=== PATIENT | male | born 1950 | race Caucasian/White ===

== ENCOUNTER 2025-04-20 12:48 | Outpatient (CLI) | payer MEDICARE, SELFPAY ==
--- OUTSIDE RECORDS SUMMARY | 2025-04-07 04:00 | XMS_ITS | Continuity of Care Document ---
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 Phone Jung MAYER, [facility], [facility] Unavailable Unavailab le Allergies, Adverse Reactions, Alerts Substance Reaction Status Criticality No Known Allergies Active No Inform ation Medications Medication Instructions Dosage Effective Dates (start - stop) Status Comments Accu-Chek Guide test strips USE TO TEST BLOOD GLUCOSE ONCE DAILY - Active Accu-Chek Softclix Lancets USE TO TEST BLOOD GLUCOSE ONCE DAILY - Active metformin 500 mg tablet - Active atorvastatin 40 mg tablet - Active Accu-Chek Guide Me Glucose Meter USE TO TEST SUGARS ONCE DAILY - Active Eliquis 5 mg tablet - Active Procedures Procedure Date Complex e/m visit add on OFFICE/OUTPATIENT VISIT, EST Advance Directives Directive Yes / No Effective Date File Name Other Directive No N/A N/A WARNING:The information contained in this section is historical and is provided for information only and does not constitute a legal document or any assurance that the information is still accurate. Please verify the information with the elizondo of the legal document before using it for clinical purposes. Encounters Encounter Description Practice Location Reason(s) For Visit Diagnoses Date Provider Providers Copied on Encounter OFFICE/OUTPAT IENT VISIT, EST [facility], [address] [place] [address], [id number], [place] tel:[phone] [facility] [place] FOLLOW UP (chief complaint) Hyperlipidemia, unspecifiedPEType 2 diabetes mellitus without complications Jung Timur. [address], [place], [place], [id number] , [place]. tel: [phone] Referring Provider: Kaitlynn landers, [address] [facility] [address], [place], [address]. tel:[phone] [facility], [address] [place] [address], [id number], tel:[phone] [facility] No Information 5 Jung Timur. [address], [place], [place], [id number] , . tel: [phone] [facility], [address] [place] [address], [id number], tel:[phone] [facility] Chest pain, unspecifiedHyperli pidemia, unspecified Jung Timur. [address], [place], [place], [id number] , . tel: [phone] Family History Family Member Type Diagnosis Age At Onset No Information Payers Payer name Insurance type Covered green party ID Authortaisha hernandez(s) MEDICARE [place] [id number] [place] MEDICARE SUPP CI [id number] Social History Type Description Quantity Date Captured Comments Alcohol Use Details No Caffeine Use Details No Tobacco Use Status No Information Smoking Status Former smoker Non-Smoking Tobacco Use Details : No Details Available : No Details Available Sex Male Vital Signs Date / Time: Height Weight BMI Pulse Rate Blood Pressure Temperature Respiratory Rate Body Surface Area Head Circumference Head Circ. Percentile Wt./Ary. Percentile BMI percentile Pulse Ox Inhaled Ox 9:17 AM 66.00 in 72.575 kg (160.00 lbs) 25.8 2 kg/m eter (2) 77 /min 127/80 mm[Hg] 16 /min 1.84 meter(2) 99 % 21 % Chief Complaint And Reason For Visit From encounter dated '04/07/2025 09:00'. FOLLOW UP (chief complaint) Reason For Referral Reason For Referral No Information Plan Of Treatment Date Type Action Status Goal Dietary management education , guidance, and counseling deleted History Of Present Illness Encounter Date Complaint History Of Prese nt Illness FOLLOW UP Functional Status Date Functional Assessmen t No Information Instructions Date Instruction Additional Infor mation No Information Assessments Type Assessment Date assessment Hyperlipidemia, unspecified assessment PE assessment Type 2 diabetes mellitus without complications Patient Care Teams Name Effective Dates (start - stop) Status Members No Information
--- NOTE | ~2025-04-20 | US_ITS ---
EXAMINATION: US venous doppler [facility] DATE: 04/20/2025 13:43 INDICATION: Recent pulmonary embolism, currently anticoagulated. TECHNIQUE: Grayscale ultrasound images without and with compression and Doppler ultrasound images of the bilateral lower extremity veins were obtained. COMPARISON: None. FINDINGS: Noncompressible deep venous thrombosis in the left profunda (deep) femoral vein, femoral vein, popliteal vein and gastrocnemius vein. The left common femoral vein, posterior tibial veins, peroneal veins and greater saphenous vein outflow are patent. Similar pattern of noncompressible deep venous thrombosis in the right profunda (deep) femoral vein, femoral vein, popliteal vein and gastrocnemius vein. The right common femoral vein, posterior tibial veins, peroneal veins and greater saphenous vein outflow are patent. IMPRESSION: 1. Extensive bilateral [id number] deep venous thrombosis in both lower limbs. Dr. Fairchild discussed these findings with Dr. Graham and at 1:50 PM. Reviewed, dictated and finalized at location A. IMPRESSION: 1. Extensive bilateral [id number] deep venous thrombosis in both lower hays bs. Dr. Fairchild discussed these findings with Dr. Graham and at 1:50 PM.
--- OUTSIDE RECORDS SUMMARY | 2025-04-20 12:56 | XMS_ITS | Clinical Summary ---
Author Organization [facility] Genaro sinclair Daniel Address [address] [place] [address] Care Team Providers Care Lead Assistant Manager Name Role Phone Unavailable Primary Care Provider Unavailabl e Allergies No known active allergies Medications Eliquis 5 mg tablet Take 5 mg by mouth 2 times daily. Active atorvastatin (LIPITOR) 40 mg tablet Take 40 mg by mouth daily. Active metFORMIN (GLUCOPHAGE) 500 mg tablet Take 500 mg by mouth 2 times daily. Active Active Problems Problem Noted Date Diagnosed Date Acute saddle pulmonary embolism without acute co r pulmonale 03/15/2025 Acute deep vein thrombosis ( DVT) of proximal vein of both lower extremities 03/15/2025 Encounters Date Type Department Care Team Description 04/13/2025 4:30 PM CDT Telephone Check Up [facility] [address] [place] [phone] Rickey Nuno MD Acute deep vein thrombosis (DVT) of proximal vein of both lower extremities (CMS/HCC) (Primary Dx) 03/21/2025 External Device Data STL ABSTRACTION Provider, Abstract 03/21/2025 External Device Data STL ABSTRACTION Provider, Abstract 03/21/2025 External Device Data STL ABSTRACTION Provider, Abstract 03/15/2025 2:30 PM CDT Office Visit [facility] and Hematology [facility] [address] [place] [phone] Deneen Obrien MD Acute saddle pulmonary embolism without acute cor pulmonale (CMS/HCC) (Primary Dx); Acute deep vein thrombosis (DVT) of proximal vein of both lower extremities (CMS/HCC) from Last 3 Months Family History Medical History Relation Name Comments No Known Problems Child 1 No Known Problems Child 2 No Known Problems Child 3 Relation Name Status Comments Brother Child 1 Alive Child 2 Alive Child 3 Alive Father Mother Sister 1 Alive Sister 2 Social History Tobacco Use Types Packs/Day Years Used Date Smoking Tobacco: Former Cigarettes 2 27 0 07/20/1970 - 07/20/1997 Smokeless Tobacco: Never Tobacco Cessation:Counseling Given: Not Answered Alcohol Use Standard Drinks/Week Comments Yes 0 (1 standard drink = 0.6 oz pur e alcohol) Occasionally Sex and Gender Information Value Date Recorded Sex Assigned at Not on file Legal Sex Male 3:04 PM CDT Gender Identity Not on file Sexual Orientation Not on file Last Filed Vital Signs Vital Sign Reading Time Taken Comments Blood Pressure 147/85 03/15/2025 2:09 PM CDT Pulse 81 03/15/2025 2:07 PM CDT Temperature 37.1 C (98.8 F) 03/15/2025 2:07 PM CDT Respiratory Rate 15 03/15/2025 2:07 PM CDT Oxygen Saturation 95% 03/15/2025 2:07 PM CDT Inhaled Oxygen Concentration - - Weight 76 kg (167 lb 9.6 oz) 03/15/2025 2:07 PM CDT Height - - Body Mass Index - - Plan of Treatment Upcoming Encounters Date Type Department Care Team (Late st Contact Info) Description 04/25/2025 4:30 PM CDT Telephone Check Up [facility] and H[facility]ology - [place] [address] [facility] [address] [place] [phone] Rickey Nuno MD [address] [facility] [address] [place] [address] Health Maintenance Due Date Last Done Comments DIABETES ANNUAL FOOT EXAM 1968 DIABETES ANNUAL RETINAL EXAM 1968 DIABETES HBA1C Q 6 MONTHS 1968 DIABETES MICROALBUMIN ANNUAL SCREEN 1968 LDL CHOLESTEROL ANNUAL 1968 Traditional Medicare (ACO) A nnual Wellness Visit 1969 COLORECTAL SCREENING 1995 Colorectal Cancer Screening 1995 FIT-DNA Q 3 years 1995 FIT/FOBT Q 1 year 1995 Flex Sig/CT Colonography Q 5 years 1995 Abdominal Aortic Aneurysm (A AA) Screening 2015 INFLUENZA VACCINE (#1) 2025 , 04/15/2023, 04/15/2022, Additional history exists RSV VACCINE (60+ or ) (1 - 1-dose 75+ series) 2025 DTAP/TDAP/TD VACCINES (2 - T d or Tdap) 10/28/2026 10/28/2016 PNEUMOCOCCAL VACCINE 50+ YEARS Completed 04/16/2020 , 04/14/2019 ZOSTER VACCINE Completed 11/09/2023, 06/02/2023 COVID-19 Vaccine Completed 01/26/2025, , 04/15/2023, Additional history exists [place] [address] [place] [address] MEDICARE PART A AND B
--- OUTSIDE RECORDS SUMMARY | 2025-04-20 12:56 | XMS_ITS | Clinical Summary ---
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 Role Phone Unavailable Primary Care Provider Unavailabl e Social History Tobacco Use Types Packs/Day Years Used Date Smoking Tobacco: Never Assessed Sex and Gender Information Value Date Recorded Sex Assigned at Not on file Legal Sex Male 7:11 PM CDT Gender Identity Not on file Sexual Orientation Not on file Plan of Treatment Health Maintenance Due Date Last Done Comments Colorectal Cancer Screening Colonoscopy (10 Years) 1950 Hepatitis C 1968 DTaP, Tdap and Td Vaccines ( 1 - Tdap) 1969 Pneumococcal Vaccine: 50+ Ye ars (1 of 1 - PCV) 2000 Zoster Vaccines (1 of 2) 2000 COVID-19 Vaccine (1 - 2023-2 5 season) 2025 RSV Immunization or 60+ Years (1 - 1-dose 75+ series) 2025 Meningococcal B Vaccine Aged Out No l onger eligible based on patient's age to complete this topic Meningococcal Vaccine Aged Out No jalen joaquin eligible based on patient's age to complete this topic RSV Immunizations Under 20 Months Aged Out No longer eligible based on patient's age to complete this topic
== END 2025-04-20 12:49 | disposition home or self-care (01) ==
PROVIDERS: PCP Internal Medicine; Visit Provider Internal Medicine Hematology & Oncology
DX: I82.4Y3 Acute embolism and thrombosis of unspecified deep veins of proximal lower extremity, bilateral (principal)
CPT/HCPCS: 93970

== ENCOUNTER 2025-04-27 08:31 | Outpatient (CLI) | payer MEDICARE, SELFPAY ==
--- NOTE | ~2025-04-27 | CT_ITS ---
EXAMINATION: CT abdomen pelvis w con DATE: 04/27/2025 08:55 INDICATION: Abdominal pain. TECHNIQUE: Computed tomography (CT) of the abdomen and pelvis was performed with 100 mL Omnipaque 350 intravenous contrast. Automated exposure control and iterative reconstruction technique were employed. The dose-length product was 383.51 mGy-cm. COMPARISON: None. FINDINGS: The visualized portions of lung bases demonstrate mild atelectasis. Calcified left lung nodules and calcified left hilar and mediastinal lymph nodes are consistent with old granulomatous disease. No pleural effusion. The heart size is normal. No pericardial effusion. There are coronary artery calcifications. There are cysts in the liver measuring up to 7 mm. There are gallstones in the gallbladder, which is normal in size. Calcifications in the spleen are consistent with old granulomatous disease. The pancreas, adrenal glands, and kidneys are normal. The prostate is moderately enlarged. There are no dilated loops of bowel. The appendix is normal. There are no pathologically enlarged lymph nodes. There is no free intraperitoneal fluid. There is mild thoracic and lumbar spondylosis. IMPRESSION: 1. No etiology for the patient's symptoms. Reviewed, dictated and finalized at location E.
[2025-04-27 08:51] LABS: Estimated Glomerular Filt Rate > 60
== END 2025-04-27 08:32 | disposition home or self-care (01) ==
PROVIDERS: PCP Internal Medicine; Visit Provider Internal Medicine Hematology & Oncology
DX: R10.9 Unspecified abdominal pain (principal)
CPT/HCPCS: 74177; Q9967

== ENCOUNTER 2025-07-17 09:28 | Outpatient (CLI) | payer MEDICARE, SELFPAY ==
--- NOTE | ~2025-07-17 | US_ITS ---
EXAMINATION:US venous doppler LE BI INDICATION:Deep venous thrombosis. Patient on blood thinners. TECHNIQUE: Multiple grayscale, color flow and Doppler images of the right and left lower extremity deep venous systems were obtained and reviewed. 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 There is thrombosis of the right gastrocnemius vein. IMPRESSION: 1: Extensive bilateral deep venous thrombosis of the lower extremities.. Reviewed, dictated and finalized at location O. 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
--- OUTSIDE RECORDS SUMMARY | 2025-07-17 09:48 | XMS_ITS | Clinical Summary ---
Author Organization [facility] Address [address] [place] [address] Care Team Providers Care Case Liner Name Role Phone Unavailable Primary Care Provider [...] of 2) 2000 COVID-19 Vaccine (1 - 2024-2 6 season) 2025 RSV Immunization or 60+ Years (1 - 1-dose 75+ series) 2025 Influenza Adult (#1) 2025 Hepatitis A Vaccines Aged Out No long er eligible based on patient's age to complete this topic Meningococcal B Vaccine Aged Out No l onger eligible based on patient's age to complete this topic Meningococcal Vaccine Aged Out No jalen joaquin eligible based on patient's age to complete this topic RSV Immunizations Under 20 Months Aged Out No longer eligible based on patient's age to complete this topic
--- OUTSIDE RECORDS SUMMARY | 2025-07-17 09:48 | XMS_ITS | Data Portability ---
Author Organization [place] [facility], Main Office Address [address] [place] [address] Care Team Providers Care Consumer Loan Manager Name Role Phone MED AMBROSE Primary Care Provider MED AMBROSE Referring Provider [phone] Assessment Encounter Date Assessment Date Assessment LastModified by Organization Details LastModified Time 05/12/2023 05/12/2023 This note is dictated and transcribed by [employer]. Manager Social Services variances may occur. Despite proofreading, typographical errors may occur. Not available 05/12/2023 10:13:42 05/19/2023 05/19/2023 This note is dictated and transcribed by [employer]. Manager Social Services variances may occur. Despite proofreading, typographical errors may occur. Not available 05/19/2023 10:00:12 01/09/2025 01/09/2025 12/18/2024 [facility] labs A1C 8.4 12/21/2024: Gluc 173 Not available 01/09/2025 15:06:49 04/10/2025 04/10/2025 12/18/2024 [facility] labs A1C 8.4 12/21/2024: Gluc 173 03/16/2025: A1C 5.3 PSA 3.52 Not available 04/10/2025 14:58:44 Plan of Treatment Reminders Order Date Submit Date Provider Last Modified By Organization Details Last Modified Time Details Appointments Follow Up 15 2025 10:00A M Kaitlynn falcon MD Not available Not available Not available Lab glycohemo globin, total, blood 2024 025 [facility] (Lab), [address] [place], [address], 04/13/2025 12:31:06 microalbu min, urine 2024 025 [facility] (Lab), [address] [place], [address], 04/13/2025 12:31:06 lipid panel, serum 2024 025 [facility] (Lab), [address] [place], [address], 04/13/2025 12:31:06 CBC w/ auto diff 2024 025 [facility] (Lab), [address] [place], [address], 04/13/2025 12:31:06 TSH, serum or plasma 2024 025 [facility] (Lab), [address] [place], [address], 04/13/2025 12:31:06 CMP, serum or plasma 2024 025 [facility] (Lab), [address] [place], [address], 04/13/2025 12:31:06 PSA, total, serum or plasma 2024 025 [facility] (Lab), [address] [place], [address], 03/16/2025 13:54:13 glycohemo globin, total, blood 2024 025 [facility] (Lab), [address] [place], [address], 03/16/2025 14:18:36 microalbu min, urine 2024 025 [facility] (Lab), [address] [place], [address], 03/16/2025 13:51:36 lipid panel, serum 2024 025 [facility] (Lab), [address] [place], [address], 03/16/2025 13:53:03 CBC w/ auto diff 2024 025 [facility] (Lab), [address] [place], [address], 03/16/2025 13:13:49 TSH, serum or plasma 2024 025 [facility] (Lab), [address] [place], [address], 03/16/2025 13:54:08 CMP, serum or plasma 2024 025 [facility] (Lab), [address] [place], [address], 03/16/2025 13:53:13 Referral urologist referral - Please call patient to schedule an appointme nt. Thank you. 2024 025 [email or web address] Jeyson Bills MD, [address] [facility] [address], [place], [address], 07/10/2025 11:34:03 podiatris t referral - Please call patient to schedule an appointme nt. Thank you. 2024 025 [email or web address] Mayo Thompson DPM, [address] [facility], [address], [place], [address], 07/10/2025 11:37:06 cardiolog ist referral - Please call patient to schedule an appointme nt. Thank you. 2024 025 [email or web address] [place], [address] [address] , [address], [place], [address], 07/10/2025 11:35:14 podiatris t referral - Please call patient to schedule an appointme nt. Thank you. 2024 025 [email or web address] Mayo Thompson DPM, [address] [facility], [address], [place], [address], 07/10/2025 11:37:29 cardiolog ist referral - Please call patient to schedule an appointme nt. Thank you. 2024 025 [email or web address] [place], [address] [address], [place], [address], 04/17/2025 11:05:35 hematolog ist referral - Please call patient to schedule an appointme nt. Thank you. 2024 025 [email or web address] Rickey Nuno MD, [address], [place], [address], 04/17/2025 11:05:01 Procedures colonosco py screening (PROC) - Please call patient to schedule an appointme nt. Thank you. 2024 025 [email or web address] Jose Angel Carlos MD, [address] [facility], [facility] [address], [place], [address], 07/10/2025 11:33:08 colonosco py screening (PROC) - Please call patient to schedule an appointme nt. Thank you. 2024 025 [email or web address] Jose Angel Carlos MD, [address] [facility], [facility] [address], [place], [address], 04/17/2025 11:15:34 Surgeries None recorded. Imaging None recorded. Medication Orders atorvasta tin 40 mg tablet 2024 025 [facility] [address] [place], [address], 01/09/2025 15:48:54 Patient TargetsNo targets recorded. Patient Instructions Encounter Date Encounter Id Patient Instructions Last Modified By Organization Details Last Modified Time 05/12/2023 [id number] paronychia: care instructions Not available 05/12/2023 10:14:05 05/19/2023 [id number] paronychia: care instructions Not available 05/19/2023 10:00:50 01/09/2025 [id number] diabetic eye exam* llalor Not available 07/10/2025 10:20:00 Reason for Referral [employer] Referral for Type 2 diabetes mellitus Please call patient to schedule an appointment. Thank you. Referring Physician: Kaitlynn Valle Internal Medicine, Encounter Date: 01/09/2025 Please call patient to sched ule an appointment. Thank you. Referring Physician: Kaitlynn Valle Internal Medicine, Encounter Date: 01/09/2025 Jacquard Lace Weaver Referral for Sc reening for cardiovascular system disease Please call patient to schedule an appointment. Thank you. Referring Physician: Kaitlynn Valle Internal Medicine, Encounter Date: 01/09/2025 [employer] Referral for Type 2 diabetes mellitus Please call patient to schedule an appointment. Thank you. Referring Physician: Sade Brandt Medicine, Encounter Date: 04/10/2025 Jacquard Lace Weaver Referral for Sc reening for cardiovascular system disease Please call patient to schedule an appointment. Thank you. Referring Physician: Kaitlynn Valle Internal Medicine, Encounter Date: 04/10/2025 Urologist Referral for Prost ate specific antigen above reference range Please call patient to schedule an appointment. Thank you. Referring Physician: Sade Brandt Medicine, Encounter Date: 04/10/2025 Results Created Date Observation Date Name Description Value Unit Range Abnormal Flag Note LastModifiedBy Organization Detail LastModifiedTime 12/31/19 25 12/30/2024 imagi ng/di agnos tic resul t No observ ation record ed. [facility] [address], [place], [address], 12/30/2024 18:07:21 04/20/20 25 04/20/2025 imagi ng/di agnos tic resul t No observ ation record ed. [address], [place], [address], 04/20/2025 15:05:27 04/27/20 25 04/27/2025 imagi ng/di agnos tic resul t No observ ation record ed. [address], [place], [address], 04/27/2025 10:54:47 04/27/20 25 04/27/2025 imagi ng/di agnos tic resul t No observ ation record ed. [address], [place], [address], 04/27/2025 14:37:30 Result Notes None recorded. 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 Not Available [facility] 3 12:52:24 Sprain of elbow and forearm 221389519 Active Not Available [facility] 3 12:52:25 Knee pain Active Not Available [facility] 3 12:52:25 Closed posterior dislocatio n of elbow 2123548 Active Not Available [facility] 3 12:52:25 Pain of elbow region 55861795 Active Not Available [facility] 3 12:52:25 Onychomyco sis of toenails 717644176 Active 2022 Mayo Thompson DPM [address] [facility], [address], [place], [address] , [facility] 3 15:47:59 Ingrowing nail 231199893 Active 2022 Mayo Thompson DPM [address], [address], [place], [address] , [facility] 3 15:48:06 Cellulitis of toe of right foot 4909304159161 9106 Active 2022 Mayo Thompson DPM [address], [address], [place], [address] , [facility] 3 09:59:39 Hyperlipid emia 15914655 Active 2024 Kaitlynn landers MD [address], [address], [place], [address] , [facility] 5 15:00:01 Type 2 diabetes mellitus 47018534 Active 2024 Kaitlynn landers MD [address], [address], [place], [address] , [facility] 5 15:00:07 Septic pulmonary embolism 529754368 Active 2024 Kaitlynn landers MD [address], [address], [place], [address] , [facility] 5 15:05:40 Acute pulmonary embolism 405460624 Active 2024 Kaitlynn landers MD [address], [address], [place], [address] , [facility] 5 15:22:28 Pulmonary embolism 34135448 Active 2024 NOLBERTO Bunch, [place] - [facility] 5 10:55:28 Prostate specific antigen above reference range 092483880 Active 2024 Kaitlynn landers MD [address], [address], [place], [address] , [place] [facility] 5 22:14:30 Problem Notes None recorded. Procedures Surgical History Date Name Laterality Status Provider Name and Address Organization Details Recorded Time 3 Total Nail Avulsion with Chemical Matrixectomy-Ri ght completed Mayo Thompson DPM [address], [address], [place], [address], [employer] 04/28/2023 08:58:01 3 Total Nail Avulsion with Chemical Matrixectomy-Ri ght completed Mayo Thompson DPM [address], [address], [place], [address], [employer] 04/14/2023 09:57:38 3 Nail Debridement completed Mayo Thompson DPM [address], [address], [place], [address], [employer] [facility] 12/30/2022 10:58:13 3 Nail Debridement completed Mayo Thompson DPM [address], [address], [place], [address], [employer] 10/16/2022 13:49:33 Dental completed Sheri Nunez [employer] [facility] 09/30/2022 15:47:28 Knee Replacement completed Sheri Nunez [employer] [facility] 09/30/2022 15:47:35 repair of meniscus completed Sheri Nunez [employer] [facility] 09/30/2022 15:47:43 Imaging Results None recorded. Procedure Notes None recorded. Medical Equipment None Reported. Allergies No known drug allergies Medications Name Sig Start Date Stop Date Status Note LastModified by Organization Details LastModified Time amoxicillin 500 mg capsule TAKE 1 CAPSULE BY MOUTH EVERY 8 HOURS 09/30 completed Not Available Not Available Not Available atorvastati n 40 mg tablet Take 1 tablet by mouth once daily 2024 active Not Available Not Available Not Avai lable metformin 500 mg tablet Take 1 tablet twice a day by oral route for 90 days. 2024 active Not Available Not Available Not Avai lable Accu-Chek Softclix Lancets USE TO TEST BLOOD GLUCOSE ONCE DAILY active Not Available Not Available No t Available cephalexin 500 mg capsule TAKE 1 CAPSULE BY MOUTH EVERY 6 HOURS DIRECTED FOR 7 DAYS 01/09 completed Not Available Not Available Not Available oxycodone-a cetaminophe n 7.5 mg-325 mg tablet TAKE 1 TABLET BY MOUTH EVERY 6 HOURS NEEDED FOR PAIN 09/30 completed Not Available Not Available Not Available ketoconazol e 2 % topical cream APPLY 1 APPLICATI ON ONTO THE AFFFECTED TOENAILS ONCE DAILY 01/09 completed Not Available Not Available Not Available naproxen 500 mg tablet TAKE 1 TABLET BY MOUTH EVERY 12 HOURS NEEDED 09/30 completed Not Available Not Available Not Available amoxicillin 875 mg-potassiu m clavulanate 125 mg tablet TAKE 1 TABLET BY MOUTH TWICE DAILY 09/30 completed Not Available Not Available Not Available chlorhexidi ne gluconate 0.12 % mouthwash SWISH AND SPIT 15ML BY MOUTH THREE TIMES DAILY UNTIL GONE 09/30 completed Not Available Not Available Not Available Eliquis 5 mg tablet TAKE 1 TABLET BY MOUTH TWICE DAILY active Not Available Not Available No t Available Accu-Chek Guide test strips USE TO TEST BLOOD GLUCOSE ONCE DAILY active Not Available Not Available No t Available Accu-Chek Guide Me Glucose Meter USE TO TEST SUGARS ONCE DAILY active Not Available Not Available No t Available Vitals Date Recorded Body weight Body mass index (BMI) Body height Body temperature Heart rate Systolic And Diastolic Provider Name and Address Organization Details Last Updated DateTime 5 16345.8 1 g 29.4 kg/m2 167.64 cm 98.4 [degF] 84 /min 142/80 mm[Hg] NOLBERTO Bunch [facility] [employer] [facility] 5 15:16:24 Date Recorded Body height Body mass index (BMI) Body weight Body temperature Pain severity - 0-10 verbal numeric rating [Score] - Reported Heart rate Oxygen saturation Systolic And Diastolic Provider Name and Address Organization Details Last Updated DateTime 5 167.64 cm 26.3 kg/m2 19448.5 6 g 98.4 [degF] 0 76 /min 98 % 120/66 mm[Hg] Keli Osei MA [facility] [employer] [facility] 5 14:53:01 Date Recorded Body height Body mass index (BMI) Body weight Heart rate Respiratory rate Oxygen saturation Systolic And Diastolic Provider Name and Address Organization Details Last Updated DateTime 3 167.64 cm 32 kg/m2 13873.2 9 g 94 /min 14 /min 98 % 146/90 mm[Hg] Sheri Nunez [employer] 3 09:58:43 Date Recorded Body height Body mass index (BMI) Body weight Heart rate Respiratory rate Oxygen saturation Systolic And Diastolic Provider Name and Address Organization Details Last Updated DateTime 3 167.64 cm 32 kg/m2 44937.2 9 g 95 /min 14 /min 98 % 132/76 mm[Hg] Sheri Enrique [employer] 3 08:52:24 Social History Question Answer Notes LastModified by Organizat ion Details LastModified Time Tobacco Smoking Status Former Smoker quit 1997 NOLBERTO Bunch, [employer] [facility] 01/09/2025 15:09:09 Do You Have An Advance Directive? No Information not available 01/09/2025 Are You Blind Or Do You Have Difficulty Seeing? No Information not available 01/09/2025 What Is Your Level Of Caffeine Consumption? Occasional Information not available 09/30/2022 Are You Deaf Or Do You Have Serious Difficulty Hearing? No Information not available 01/09/2025 What Type Of Diet Are You Following? DIABETIC Information not available 01/09/2025 What Is The Highest Grade Or Level Of School You Have Completed Or The Highest Degree You Have Received? [id number] Information not available 01/09/2025 Have There Been Any Changes To Your Family Or Social Situation? No Information not available 04/10/2025 What Is The Fluoride Status Of Your Home? Fluoridated Information not available 01/09/2025 Are There Any Guns Present In Your Home? No Information not available 01/09/2025 Where Do You Live? SingleLevelHouse Information not available 01/09/2025 Do You Have A Medical Power Of Batter Mixer? No Information not available 01/09/2025 What Was The Date Of Your Most Recent Tobacco Screening? 04/10/2025 Information not available 04/10/2025 Have You Ever Been Counseled For Unhealthy Alcohol Use? No Information not available 09/30/2022 Do You Have Any Pets? No Information not available 01/09/2025 What Is Your Relationship Status? Information not available 01/09/2025 Do You Use Your Seat Belt Or Car Seat Routinely? Yes Information not available 01/09/2025 Do You Have Smoke And Carbon Monoxide Detectors In Your Home? Yes Information not available 01/09/2025 At What Age Did You Start Smoking Tobacco? 21 Information not available 01/09/2025 Are You Passively Exposed To Smoke? No Information not available 01/09/2025 Are There Any Smokers In Your House? No Information not available 01/09/2025 How Much Tobacco Do You Smoke? No 2ppd Information not available 01/09/2025 Has Tobacco Cessation Counseling Been Provided? No Information not available 09/30/2022 Have You Recently Traveled Abroad? No Information not available 01/09/2025 Do You Have Difficulty Walking Or Climbing Stairs? No Information not available 01/09/2025 Sex: Male Functional Status Question Answer Note LastModified by Organizat ion Details LastModified Time Do you use any illicit or recreational drugs? No Information not available 09/30/2022 Do you or have you ever used any other forms of tobacco or nicotine? No Information not available 09/30/2022 What is your level of alcohol consumption? Occasional Information not available 09/30/2022 Are you currently employed? No retired Information not available 01/09/2025 Are you able to walk independently without assistance or assistive devices? YESWOREST Information not available 01/09/2025 Do you have difficulty doing errands alone? No Information not available 01/09/2025 Are you able to care for yourself independently? Yes Information not available 01/09/2025 Do you have difficulty dressing, bathing, grooming, or toileting? No Information not available 01/09/2025 What is your exercise level? Heavy Information not available 01/09/2025 Mental Status Question Answer Note LastModified by Organizat ion Details LastModified Time Do you feel stressed (tense, restless, nervous, or anxious, or unable to sleep at night)? [id number] [facility] Information not available 01/09/2025 Do you have difficulty concentrating, remembering or making decisions? No Information no t available 01/09/2025 Family History Nothing Reported. Medical History Condition Response BACK INJECTIONS N ALLERGIES/HAYFEVER N LUNG DISEASE/DISORDER N ESRD N HISTORY OF DRUG ABUSE N INSOMNIA N RADIATION / CHEMOTHERAPY N COPD N HIGH CHOLESTEROL / HYPERLIPIDEMIA N RHEUMATOID ARTHRITIS N PVD N EDEMA N CAROTID BLOCKAGE N SHINGLES N BACK / NECK PROBLEMS N BOWEL PROBLEMS N DEPRESSION (INCLUDING POST ) N HAVE YOU BEEN HOSPITALIZED OR SEEN IN [facility] ER IN THE PAST YEAR ? N FAILED BACK SYNDROME N STROKE/TIA N LYMPHEDEMA N THYROID DISEASE N TB SKIN TEST N POLYCYSTIC OVARIES N OBESITY N HISTORY WITH COMPLICATIONS WITH ANESTHES IA ? N ANEURYSM N FIBROMYALGIA N OSTEOPOROSIS N URINARY/BLADDER/KIDNEY PROBLEMS N CORONARY ARTERY DISEASE (CAD) N Do you have Advance directive? N ARTHRITIS N Do you have a healthcare POA? N RESPIRATORY PROBLEMS N USE OF BLOOD THINNERS N NO SIGNIFICANT PAST MEDICAL HISTORY N DIABETES, TYPE N VON WILLIBRAND'S DISEASE N PERIPHERAL VASCULAR DISEASE N HEARTBURN / REFLUX N PERIPHERAL ARTERY DISEASE N AFIB N Do you have a living will? N BLOOD CLOTS N POST LAMINECTOMY SYNDROME N HEPATITIS / LIVER DISEASE N PULMONARY DISEASE N USE OF NSAIDS N GOUT N ALZHEIMER'S DISEASE N PAIN N ARTERIAL INSUFFICIENCY N HEADACHES/MIGRAINES N SEIZURES/EPILEPSY N CHF N VASCULAR DISEASE N Blood Disorder N DIZZINESS N HEART DISEASE/HEART PROBLEMS N NEUROPATHY N AIDS/HIV N KIDNEY DISEASE N LIVER DISEASE N MENTAL DISORDER/ILLNESS N NEUROPSYCHOLOGICAL N HYPERTENSION N CARDIAC ARRHYTHMIA N CANCER: SPECIFY N TOURETTE'S N ANXIETY DISORDER N ANESTHESIA COMPLICATIONS N ANEMIA/BLOOD DISORDER N BIPOLAR DISORDER N AUTOIMMUNE DISEASE N OSTEOARTHRITIS N TUBERCULOSIS N FOOT PROBLEM N Immunizations Vaccine Type Date Status Note Provider Nam e and Address Organization Details Recorded Time Tdap 7 completed Not Available [employer] 04/10/2025 14:45:26 Pneumococcal conjugate PCV 13 9 completed Not Available [facility] 04/10/2025 14:45:26 Influenza, high-dose, trivalent, PF 9 completed Not Available [facility] 04/10/2025 14:45:26 Influenza, high-dose, quadrivalent, PF 0 completed Not Available [facility] 04/10/2025 14:45:26 pneumococcal polysaccharide PPV23 0 completed Not Available [facility] 04/10/2025 14:45:26 COVID-19, mRNA, LNP-S, PF, 30 mcg/0.3 mL dose 1 completed Not Available [facility] 04/10/2025 14:45:26 COVID-19, mRNA, LNP-S, PF, 30 mcg/0.3 mL dose 1 completed Not Available [facility] 04/10/2025 14:45:26 Influenza, high-dose, quadrivalent, PF 1 completed Not Available [facility] 04/10/2025 14:45:26 COVID-19, mRNA, LNP-S, PF, 30 mcg/0.3 mL dose 1 completed Not Available [facility] 04/10/2025 14:45:26 COVID-19, mRNA, LNP-S, PF, 30 mcg/0.3 mL dose, yesenia-sucrose 2 completed Not Available [facility] 04/10/2025 14:45:26 Influenza, high-dose, quadrivalent, PF 2 completed Not Available [facility] 04/10/2025 14:45:26 COVID-19, mRNA, LNP-S, PF, yesenia-sucrose, 30 mcg/0.3 mL 3 completed Not Available [facility] 04/10/2025 14:45:26 Influenza, high-dose, quadrivalent, PF 3 completed Not Available [facility] 04/10/2025 14:45:26 RSV, recombinant, protein subunit RSVpreF, adjuvant reconstituted, 0.5 mL, PF 3 completed Not Available [facility] 04/10/2025 14:45:26 zoster recombinant 3 completed Not Available [facility] 04/10/2025 14:45:26 zoster recombinant 4 completed Not Available [facility] 04/10/2025 14:45:26 COVID-19, mRNA, LNP-S, PF, yesenia-sucrose, 30 mcg/0.3 mL 4 completed Not Available [facility] 04/10/2025 14:45:26 Influenza, adjuvanted, trivalent, PF 4 completed Not Available [facility] 04/10/2025 14:45:26 COVID-19, mRNA, LNP-S, PF, yesenia-sucrose, 30 mcg/0.3 mL 5 completed Not Available [facility] 04/10/2025 14:45:26 Past Encounters Encounter ID Performer Location Encounter Start Date Encounter Closed Date Diagnosis/Indication Diagnosis SNOMED-CT Code Diagnosis ICD10 Code Diagnosis IMO Codes Diagnosis Note [id number] Mayo Thompson DPM [facility] [place] [address] [id number] 09/30/2022 15:34:59 10/17/2022 14:44:37 Onychomycosis of toenails 110341859 B35.1 Educated on treatment optionsNai ls debridedSt art topical ketoconazo leFollow-u p in 3 months Ingrowing nail 891556786 L60.0 bilateral great toenails noninfecte dSlant back procedure performedI f continues to be problemati c will require partial matrixecto myFollow-u p as needed for this issue [id number] Mayo Thompson DPM [facility] [place] [address] [phone] 12/30/2022 10:03:40 12/30/2022 11:09:52 Ingrowing nail 800213524 L60.0 bilateral great toenails noninfecte d - both corners right great toe wound and lateral corner leftwill schedule for partial matrixecto my procedureS lant back procedure performed todaymonit or for signs of infection if presents seek medical attention immediatel yFollow-up for procedure Onychomyco sis of toenails 679754961 B35.1 Continue ketoconazo leimprovem ent of toenailsfo llow-up 3 months [id number] Mayo Thompson DPM [facility] [place] [address] [place] [id number] 04/14/2023 09:25:29 04/14/2023 10:19:18 Ingrowing nail 048489378 L60.0 bilateral great toenails noninfecte d - both corners right great toe wound and lateral corner leftwill schedule for partial matrixecto my procedure Both corners both great toespartia l nail avulsion of the right medial performed today secondary to acute infectionw ound care instructio joshua reviewedPa tient is to soak in warm Epsom salt soaks math for approximat corey 20 min daily for 5-7 days until infection has resolved. Patient is to dress the wound daily with topical antibiotic ointment and Band-Aid. Patient to monitor for signs of infection, if worsens seek medical attention at the nearest ER. reviewedmo nitor for signs of infection if presents seek medical attention immediatel yFollow-up for procedure once infection has resolved Cellulitis of toe of right foot [id number] L03.031 great toe, right [id number] Mayo Thompson DPM [facility] [place] [address] [place] [address] 04/28/2023 08:30:08 04/28/2023 09:43:10 Ingrowing nail [id number] L60.0 bilateral great toenails noninfecte d -consent signed for partial matrixecto my both corners both great toewound care instructeunice lewis reviewed with the patientFol low-up in 2 weeks if not healed [id number] Mayo Thompson DPM [facility] [place] [address] [address] 05/12/2023 09:48:28 05/12/2023 10:40:45 Ingrowing nail [id number] L60.0 bilateral great toenails - status post partial matrixecto mycontinue daily wound careRecomm end daily Epsom salt soakswound care instructeunice lewis reviewed with the patientFol low-up in 1 week [id number] Mayo Thompson DPM [facility] [place] [address] [place] [address] 05/19/2023 08:46:50 05/19/2023 10:14:19 Ingrowing nail [id number] L60.0 bilateral great toenails - status post partial matrixecto myremoved eschar with soap and water at homemay leave open and dry if starts to drain or becomes reinfected did return to officefoll ow-up as needed [id number] Kaitlynn landers MD [facility] [place] [address] [address] [place] [address] 01/09/2025 14:56:58 01/09/2025 15:17:47 Screening due [id number] Z13.9 [id number] C-scope: get this done Get yearly flu shot, get tdap if not doneCan do COVID 19 boosterCan do shingrix vaccineCan do Prevnar #20Can do RSV vaccine RTC in 3 months, do labs, ER if worse, he did verbalize his understand ing of the above Hyperlipidemia [id number] E78.5 [id number] On atorvastat in 40mg daily, renewed as per his requestGet labs Type 2 david betes mellitus 63473806 E11.9 83211406 On metformin 500mg bidNeeds to be on PAULA-1/ARB, wants to discuss with Dr Zuniga labs Screening for malignant neoplasm of colon 746033611 Z12.11 916596 Screening for malignant neoplasm of prostate 197821889 Z12.5 659112 Acute pulm onary embolism 534111266 I26.99 [id number] S/p admitted and d/c from [facility] on eliquisDid have augie DVTs as per his historyGet a referral to hematology Screening for cardiovascular system disease 111120801 Z13.6 [id number] He does see [address] Feng [id number] Kaitlynn landers MD [facility] [place] [address] [facility] [address] [place] [address] 03/16/2025 08:41:43 03/16/2025 09:07:35 [id number] Kaitlynn landers MD [facility] [place] [address] [facility] [place] [address] 04/10/2025 14:42:58 04/10/2025 15:20:39 Screening due [id number] Z13.9 01547805 C-scope: get this done Get yearly flu shot, get tdap if not doneCan do COVID 19 boosterCan do shingrix vaccineCan do Prevnar #20Can do RSV vaccine RTC in 3 months, do labs, ER if worse, he did verbalize his understand ing of the above Hyperlipidemia 41020607 E78.5 71505623 On atorvastat in 40mg daily, renewed as per his requestGet labs 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 E11.9 92277847 On metformin 500mg bidNeeds to be on PAULA-1/ARB, wants to discuss with Dr Zuniga labs Screening for malignant neoplasm of colon 387884761 Z12.11 221225 Acute pulm onary embolism 782877714 I26.99 [id number] S/p admitted and d/c from [facility] on eliquisDid have augie DVTs as per his historyGet a referral to hematology OV 04/10/2025 :Did see Dr Deneen Carolina need to be on indefinite eliquis 5mg bid for 6 months and then 2.5mg bid Screening for cardiovascular system disease 332106772 Z13.6 [id number] He does see Dr Feng [facility] 12/30/2024 Prostate s pecific antigen above reference range 715480510 R97.20 90428 Get a referral Health Concerns Section Related Observation LastModified by Organization Detai ls LastModified Time None Recorded Concern Status LastModified by Organization Details LastModified Time None Recorded Advance Directives Directive N: Payers Insurance Date Sequence Insurance Name Policy Number Policy Piedra Covered Member ID Piedra Member ID Guarantor Name 04/10/2025 1 [place] Tye Rivera [id number] Tye Rivera 04/10/2025 2 [employer] Tye Rivera [id number] Tye Craneler 04/10/2025 2 [employer] (MEDICARE SUPPLEMENT) Tye Rivera [id number] Tye Rivera 04/10/2025 2 [facility] (MEDICARE SUPPLEMENT) Tye Rivera [id number] Tye Rivera 04/10/2025 2 [employer] (MEDICARE SUPPLEMENT) Tye Rivera [id number] Tye Rivera 04/10/2025 3 [employer] (MEDICARE SUPPLEMENT) PLAN G Tye Rivera [id number] Tye Rivera Notes Date Note Type Note Provider Name and Address Organization Details Recorded Time 05/12/2023 text/html . Patient is a 73-year-old male who returns the office for follow-up on bilateral partial matrixectomy. Patient has some mild inflammation to the nail beds but overall denies any significant signs of infection. Patient states he has mild tenderness to the area. Patient states he has been providing wound care with Neosporin daily. I did recommend to soak the toes daily for 20 minutes with Epson salt soaks as to alleviate inflammation and prevent infection. Patient denies any other complaints. Mayo Thompson DPM [address], [place], [address], [employer] 05/12/2023 10:14:19 05/19/2023 text/html . Patient is a 73-year-old male who returns the office for follow-up on partial matrixectomy with slow healing wounds. Patient is almost completely healed has some minor eschar to the area but states it is no longer draining any more. Patient states that he does not have any pain to the area. Patient denies any fever, chills, nausea vomiting. Patient denies any other complaints. Mayo Thompson DPM [address], [place], [address], [employer] 05/19/2023 10:01:01 01/09/2025 text/html OV 01/09/2025: Here to establish care Present Hx:HARPAL S/p D/c from [facility], now does wellHere with his Kaitlynn Valle MD [address], [place], [address], [facility] [employer] [facility] 01/09/2025 15:49:13 04/10/2025 text/html OV 01/09/2025: Here to establish care Present Hx:DMIIHLDARWINE S/p D/c from [facility], now does wellHere with his OV 04/10/2025:Here for his f/u apt, he is doing well todayHere with his wifeHe did do the labs Kaitlynn Valle MD [address], [place], [address], [place] [facility] [employer] [facility] 04/10/2025 15:27:18
--- OUTSIDE RECORDS SUMMARY | 2025-07-17 09:48 | XMS_ITS | Clinical Summary ---
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 Role Phone Unavailable Primary Care Provider [...] Encounters Date Type Department Care Team Description 07/11/2025 External Device Data [facility] ABSTRACTION Provider, Abstract 07/04/2025 External Device Data [facility] ABSTRACTION Provider, Abstract 07/04/2025 External Device Data [facility] ABSTRACTION Provider, Abstract 05/17/2025 External Device Data [facility] ABSTRACTION Provider, Abstract 05/16/2025 External Device Data [facility] ABSTRACTION Provider, Abstract 05/04/2025 4:30 PM CDT Telephone Check Up [facility] Oncology and Hematology - [place] [address] [place] [address] Rickey Nuno MD Acute deep vein thrombosis (DVT) of proximal vein of both lower extremities (CMS/HCC) (Primary Dx) 04/27/2025 Orders Only [facility] Hematology - [place] [address] [place] [address] Rickey Nuno MD 04/26/2025 Orders Only [facility]cology and Hematology - [place] [address] [place] [address] Rickey Nuno MD Abdominal discomfort (Primary Dx) 04/25/2025 4:30 PM CDT Telephone Check Up [facility] and Hematology - [place] [address] [place] [address] Rickey Nuno MD Acute deep vein thrombosis (DVT) of proximal vein of both lower extremities (CMS/HCC) (Primary Dx) 04/21/2025 Orders Only [facility] Oncology and Hematology - [place] [address] [place] [address] Rickey Nuno MD from Last 3 Months Family History Medical [...] Care Team (Late st Contact Info) Description 08/02/2025 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 Office Visit [facility] Oncology and Hematology - [place] [address] [place] [address] Rickey Nuno MD [address] [facility] [address] [place] [address] Health Maintenance Due Date Last Done Comments DIABETES ANNUAL FOOT EXAM 1968 DIABETES ANNUAL RETINAL EXAM 1968 DIABETES HBA1C Q 6 MONTHS 1968 DIABETES MICROALBUMIN ANNUAL SCREEN 1968 LDL CHOLESTEROL ANNUAL 1968 COLORECTAL SCREENING 1995 Colorectal Cancer Screening 1995 FIT-DNA Q 3 years 1995 FIT/FOBT Q 1 year 1995 Flex Sig/CT Colonography Q 5 years 1995 Abdominal Aortic Aneurysm (A AA) Screening 2015 INFLUENZA VACCINE (#1) 2025 , 04/15/2023, 04/15/2022, Additional history exists RSV VACCINE (60+ or ) (1 - 1-dose 75+ series) 2025 COVID-19 Vaccine (2024-2 6 season) 2025 01/26/2025, 04/02/2024, 04/15/2023, Additional history exists DTAP/TDAP/TD VACCINES (2 - T d or Tdap) 10/28/2026 10/28/2016 PNEUMOCOCCAL VACCINE 50+ YEARS Completed 04/16/2020 , 04/14/2019 ZOSTER VACCINE Completed 11/09/2023, 06/02/2023 Procedures Procedure Name Priority Date/Time Associated Diagnosis Comments CT ABDOMEN PELVIS W CONTRAST Routine 04/27/2025 12:56 PM CDT US VENOUS DOPPLER LEG BILATERAL Routine 04/20/2025 7:59 AM CDT from Last 3 Months Results * CT ABDOMEN PELVIS W CONTRAST (04/27/2025 12:56 PM CDT) Anatomical Region Laterality Modality Abdomen Computed Tomogra phy us Rickey Nuno MD CT ORDERABLES Final Result * US VENOUS DOPPLER LEG BILATERAL (04/20/2025 7:59 AM CDT) Anatomical Region Laterality Modality Lower Extremity Ultrasound us Rickey Nuno MD US ORDERABLES Final Result from Last [address] [place], [place] [id number] [place] [address] MEDICARE PART A AND B
== END 2025-07-17 09:29 | disposition home or self-care (01) ==
PROVIDERS: PCP Internal Medicine; Visit Provider Internal Medicine Hematology & Oncology
DX: I82.4Y3 Acute embolism and thrombosis of unspecified deep veins of proximal lower extremity, bilateral (principal)
CPT/HCPCS: 93970